=== PATIENT | male | born 1960 | race Caucasian/White ===

== ENCOUNTER 2018-11-05 17:30 | Emergency (ER) | payer BC ==
--- NOTE | 2018-11-05 18:34 | EDM.PDOC ---
ED HPI GENERAL MEDICAL PROBLEM - General Chief Complaint: Skin Complaint Stated Complaint: RASH Time Seen by Provider: 11/05/18 17:42 Source of Information: Reports: Patient History Limitations: Reports: No Limitations - History of Present Illness INITIAL COMMENTS - FREE TEXT/NARRATIVE: HISTORY AND PHYSICAL: History of present illness: Patient is a 58-year-old male presents to the ED today with concern of a generalized rash x 2 months. Patient states he initially had a rash about 2 months ago on his side and was treated for shingles. Patient states after the treatment the rash had gone away but has come back over the past month slowly. Patient states he took the medication accordingly when he was diagnosed with shingles. Patient states he returned he went back to the doctor and was given a steroid and states that this did not take care of his rash completely and it is slowly coming again. Patient states the rash is itchy and is all over his body. Patient states he took one dose of Benadryl today which she has noticed has helped the rash become less itchy. Patient has a history of coronary artery disease but denies any other health history. Patient denies swelling in his throat or difficulties breathing. Patient denies having these symptoms prior. Patient denies any other symptoms or concerns at this time. Patient denies fever, chills, chest pain, shortness of breath, or cough. Denies headache, neck stiff ness, change in vision, syncope, or near syncope. Denies nausea, vomiting, abdominal pain, diarrhea, constipation, or dysuria. Has not noted any blood in urine or stool. Patient has been eating and drinking appropriately. Review of systems: As per history of present illness and below otherwise all systems reviewed and negative. Past medical history: As per history of present illness and as reviewed below otherwise noncontributory. Surgical history: As per history of present illness and as reviewed below otherwise noncontributory. Social history: See social history for further information Family history: As per history of present illness and as reviewed below otherwise noncontributory. Physical exam: General: Patient is alert, oriented, and in no acute distress. Patient sitting comfortably on exam table. HEENT: Atraumatic, normocephalic, pupils equal and reactive bilaterally, negative for conjunctival pallor or scleral icterus, mucous membranes moist, TMs normal bilaterally, throat clear, neck supple, nontender, trachea midline. No drooling or trismus noted. No meningeal signs. No hot potato voice noted. Lungs: Clear to auscultation, breath sounds equal bilaterally, chest nontender. No stridor, wheezing, or use of accessory / intercostal retractions. Heart: S1S2, regular rate and rhythm without overt murmur Abdomen: Soft, nondistended, nontender. Negative for masses or hepatosplenomegaly. Negative for costovertebral tenderness. Pelvis: Stable nontender. Genitourinary: Deferred. Rectal: Deferred. Skin: Patient has a generalized rash involving small circular patches of erythema in various sizes over entire body including armpits and groin area. No crusting or pustules. Not warm to touch. Negative petechiae or purpura. Extremities: Atraumatic, negative for cords or calf pain. Neurovascular unremarkable. Neuro: Awake, alert, oriented. Cranial nerves II through XII unremarkable. Cerebellum unremarkable. Motor and sensory unremarkable throughout. Exam nonfocal. Notes: Discussed the importance for follow-up with primary care provider or interlocker maintainer. Voices understanding and is agreeable to plan of care. Denies any further questions or concerns at this time. Diagnostics: None Therapeutics: None Prescription: Medrol dose pack Impression: Dermatitis, unspecified Plan: 1. Take medication as prescribed. You can alternate ibuprofen and Tylenol as checked her for pain and discomfort. 2. Use [id number] Benadryl as directed and as discussed. Return to the ED as needed and as discussed. 3. Follow up with primary care provider or interlocker maintainer as discussed. Definitive disposition and diagnosis as appropriate pending reevaluation and review of above. - Related Data Allergies Allergy/AdvReac Type Severity Reaction Status Date / Time bees Allergy Hives Uncoded 11/05/18 17:44 Home Meds: Home Meds . [No Known Home Meds] 11/05/18 [History] Past Medical History - Past Health History Medical/Surgical History: Denies Medical/Surgical History Cardiovascular History: Reports: NC - Infectious Disease History Infectious Disease History: Reports: None - Past Surgical History HEENT Surgical History: Reports: Tonsillectomy Cardiovascular Surgical History: Reports: Coronary Artery Stent Other Cardiovascular Surgeries/Procedures: x3 Social & Family History - Family History Family Medical History: Noncontributory - Tobacco Use Smoking Status *Q: Never Smoker ED ROS GENERAL - Review of Systems Review Of Systems: ROS reveals no pertinent complaints other than HPI. ED EXAM, SKIN/RASH Exam: See Below (See dictation) Course - Vital Signs Last Recorded V/S: Last Vital Signs Temp 36.3 C 11/05/18 17:44 Pulse 96 11/05/18 17:44 Resp 16 11/05/18 17:44 BP 151/95 H 11/05/18 17:44 Pulse Ox 96 11/05/18 17:44 Departure - Departure Time of Disposition: 18:33 Disposition: Home, Self-Care 01 Clinical Impression: Dermatitis - Discharge Information Instructions: Atopic Dermatitis Referrals: PCP,None [Primary Care Provider] - Forms: ED Department Discharge Additional Instructions: The following information is given to patients seen in the emergency department who are being discharged to home. This information is to outline your options for follow-up care. We provide all patients seen in our emergency department with a follow-up referral. The need for follow-up, as well as the timing and circumstances, are variable depending upon the specifics of your emergency department visit. If you don't have a primary care physician on staff, we will provide you with a referral. We always advise you to contact your personal physician following an emergency department visit to inform them of the circumstance of the visit and for follow-up with them and/or the need for any referrals to a consulting specialist. The emergency department will also refer you to a specialist when appropriate. This referral assures that you have the opportunity for follow-up care with a specialist. All of these measure are taken in an effort to provide you with optimal care, which includes your follow-up. Under all circumstances we always encourage you to contact your private physician who remains a resource for coordinating your care. When calling for follow-up care, please make the office aware that this follow-up is from your recent emergency room visit. If for any reason you are refused follow-up, please contact the [facility] Emergency Department at and asked to speak to the emergency department charge nurse. [facility] [address] [place] [id number] [id number] 1. Take medication as prescribed. You can alternate ibuprofen and Tylenol as checked her for pain and discomfort. 2. Use [id number] Benadryl as directed and as discussed. Return to the ED as needed and as discussed. 3. Follow up with primary care provider as discussed.
== END 2018-11-05 18:56 | disposition home or self-care (01) ==
LOC: MW.ED 17:30
DX: L30.9 Dermatitis, unspecified (principal); I25.2 Old myocardial infarction; Z91.030 Bee allergy status; Z98.890 Other specified postprocedural states
CPT/HCPCS: 99282

== ENCOUNTER 2018-11-06 12:43 | Observation (INO) | payer BC ==
[2018-11-06] MEDS ORDERED: Aspirin 81 MG Tab.Chew PO ONE (12:48)
[2018-11-06] MEDS ORDERED: Sodium Chloride 0.9% 1,000 ML IV ONE (12:48)
--- NOTE | 2018-11-06 13:20 | EDM.PDOC ---
ED HPI GENERAL MEDICAL PROBLEM - General Chief Complaint: Cardiovascular Problem Stated Complaint: DIZZY Time Seen by Provider: 11/06/18 12:45 Source of Information: Reports: Patient History Limitations: Reports: No Limitations - History of Present Illness INITIAL COMMENTS - FREE TEXT/NARRATIVE: HISTORY AND PHYSICAL: History of present illness: Patient is a 58-year-old male presents to the ED today with concern of acute onset dizziness. Patient states he describes it as if the room is spinning. Patient states he does have a slight chest discomfort but is not described as a pain. Patient was seen in the ED yesterday and I personally did evaluate him for concern of a diffuse rash. Patient was given yesterday a Medrol Dosepak for dermatitis. Patient states he's been taking accordingly and has noticed improvement of his rash as well as improvement of itching. Patient states he was just sitting at home when suddenly he felt dizzy as if the room was spinning. Patient denies ever having these symptoms before. Patient states he does have a history of coronary artery disease status post 2 stent placements. He states this occurred over 6 years ago. Patient denies fever, chills, chest pain, shortness of breath, or cough. Denies headache, neck stiff ness, change in vision, syncope, or near syncope. Denies nausea, vomiting, abdominal pain, diarrhea, constipation, or dysuria. Has not noted any blood in urine or stool. Patient has been eating and drinking appropriately. Review of systems: As per history of present illness and below otherwise all systems reviewed and negative. Past medical history: As per history of present illness and as reviewed below otherwise noncontributory. Surgical history: As per history of present illness and as reviewed below otherwise noncontributory. Social history: See social history for further information Family history: As per history of present illness and as reviewed below otherwise noncontributory. Physical exam: General: Patient is alert, oriented, and in no acute distress. Patient sitting comfortably on exam table. HEENT: Atraumatic, normocephalic, pupils equal and reactive bilaterally, negative for conjunctival pallor or scleral icterus, mucous membranes moist, TMs normal bilaterally, throat clear, neck supple, nontender, trachea midline. No drooling or trismus noted. No meningeal signs. No hot potato voice noted. Lungs: Clear to auscultation, breath sounds equal bilaterally, chest nontender. Heart: S1S2, regular rate and rhythm without overt murmur Abdomen: Soft, nondistended, nontender. Negative for masses or hepatosplenomegaly. Negative for costovertebral tenderness. Pelvis: Stable nontender. Genitourinary: Deferred. Rectal: Deferred. Skin: The area of erythematous small circular patches in various sizes are now only localized to the groin area and some on patient's left flank. Extremities: Atraumatic, negative for cords or calf pain. Neurovascular unremarkable. Neuro: Awake, alert, oriented. Cranial nerves II through XII unremarkable. Cerebellum unremarkable. Motor and sensory unremarkable throughout. Exam nonfocal. Notes: On evaluation, yesterday the rash is generalized and not in any localized area. The rash is much improved today and now is only localized to the groin area and some on the left flank. Dr. Garcia consult on patient and will admit to observation. Voices understanding and is agreeable to plan of care. Denies any further questions or concerns at this time. Diagnostics: CBC, CMP, UA, EKG, troponin, orthostatic vital, chest x-ray, head CT, pt/INR Therapeutics: ASA, NS Impression: Chest pain r/o ACS Dizziness Dermatitis, improving Plan: 1. Admit to observation to Dr. Garcia. Definitive disposition and diagnosis as appropriate pending reevaluation and review of above. - Related Data Allergies Allergy/AdvReac Type Severity Reaction Status Date / Time bees Allergy Mild Hives Uncoded 11/06/18 12:47 Home Meds: Home Meds prednisoLONE [Millipred DP] 5 mg PO ASDIRECTED 11/06/18 [History] Past Medical History - Past Health History Medical/Surgical History: Denies Medical/Surgical History Cardiovascular History: Reports: CT - Infectious Disease History Infectious Disease History: Reports: Chicken Pox, Measles, Mumps - Past Surgical History HEENT Surgical History: Reports: Tonsillectomy Cardiovascular Surgical History: Reports: Coronary Artery Stent Other Cardiovascular Surgeries/Procedures: x3 Social & Family History - Family History Family Medical History: Noncontributory - Tobacco Use Smoking Status *Q: Former Smoker Years of Tobacco use: 40 Packs/Tins Daily: 1 Used Tobacco, but Quit: Yes Month/Year Tobacco Last Used: 8 year - Caffeine Use Caffeine Use: Reports: None - Recreational Drug Use Recreational Drug Use: No ED ROS GENERAL - Review of Systems Review Of Systems: ROS reveals no pertinent complaints other than HPI. ED EXAM, GENERAL - Physical Exam Exam: See Below (see dictation) Course - Vital Signs Last Recorded V/S: Last Vital Signs Temp 36.1 C 11/06/18 12:48 Pulse 89 11/06/18 13:55 Resp 18 11/06/18 13:55 BP 120/79 11/06/18 13:55 Pulse Ox 98 11/06/18 13:55 Orthostatic Blood Pressure [ 130/82 Standing] Orthostatic Blood Pressure [ 137/80 Sitting] Orthostatic Blood Pressure [ 128/84 Supine] - Orders/Labs/Meds Orders: Active Orders 24 hr Category Date Time Status Patient Status [ADT] Stat ADT 11/06/18 14:14 Ordered Cardiac Monitoring [RC] . DIRECTED Care 11/06/18 12:48 Active EKG Documentation Completion [RC] STAT Care 11/06/18 12:48 Active Orthostatic Vital Signs [RC] ASDIRECTED Care 11/06/18 13:09 Active Labs: Laboratory Tests 11/06/18 11/06/18 11/06/18 Range/Units 12:57 12:57 12:57 WBC 13.82 H (4.0-11.0) K/uL RBC 4.69 (4.50-5.90) M/uL Hgb 14.7 (13.0-17.0) g/dL Hct 42.5 (38.0-50.0) % MCV 90.6 (80.0-98.0) fL MCH 31.3 (27.0-32.0) pg MCHC 34.6 (31.0-37.0) g/dL RDW Std Deviation 43.0 (28.0-62.0) fl RDW Coeff of Ana Laura 13 (11.0-15.0) % Plt Count 229 (150-400) K/uL MPV 8.80 (7.40-12.00) fL Neut % (Auto) 89.2 H (48.0-80.0) % Lymph % (Auto) 5.3 L (16.0-40.0) % [place] % (Auto) 5.4 (0.0-15.0) % Eos % (Auto) 0.0 (0.0-7.0) % Baso % (Auto) 0.1 (0.0-1.5) % Neut # (Auto) 12.3 H (1.4-5.7) K/uL Lymph # (Auto) 0.7 (0.6-2.4) K/uL [place] # (Auto) 0.7 (0.0-0.8) K/uL Eos # (Auto) 0.0 (0.0-0.7) K/uL Baso # (Auto) 0.0 (0.0-0.1) K/uL Nucleated RBC % 0.0 /100WBC Nucleated RBCs # 0 K/uL INR 1.03 Sodium 140 (136-148) mmol/L Potassium 3.6 (3.5-5.1) mmol/L Chloride 105 (98-107) mmol/L Carbon Dioxide 23.5 (21.0-32.0) mmol/L BUN 9 (7.0-18.0) mg/dL Creatinine 1.1 (0.8-1.3) mg/dL Est Cr Clr Drug Dosing 69.95 mL/min Estimated GFR (MDRD) > 60.0 ml/min Glucose 146 H (74-106) mg/dL Calcium 9.6 (8.5-10.1) mg/dL Total Bilirubin 0.6 (0.2-1.0) mg/dL AST 14 L (15-37) IU/L ALT 27 (14-63) IU/L Alkaline Phosphatase 76 (46-116) U/L Troponin I < 0.050 (0.000-0.056) ng/mL Total Protein 6.2 L (6.4-8.2) g/dL Albumin 3.0 L (3.4-5.0) g/dL Globulin 3.2 (2.6-4.0) g/dL Albumin/Globulin Ratio 0.9 (0.9-1.6) Urine Color Urine Appearance Urine pH (5.0-8.0) Ur Specific [place] (1.001-1.035) Urine Protein (NEGATIVE) mg/dL Urine Glucose (UA) (NEGATIVE) mg/dL Urine Ketones (NEGATIVE) mg/dL Urine Occult Blood (NEGATIVE) Urine Nitrite (NEGATIVE) Urine Bilirubin (NEGATIVE) Urine Urobilinogen (<2.0) EU/dL Ur Leukocyte Esterase (NEGATIVE) 11/06/18 Range/Units 13:00 WBC (4.0-11.0) K/uL RBC (4.50-5.90) M/uL Hgb (13.0-17.0) g/dL Hct (38.0-50.0) % MCV (80.0-98.0) fL MCH (27.0-32.0) pg MCHC (31.0-37.0) g/dL RDW Std Deviation (28.0-62.0) fl RDW Coeff of Ana Laura (11.0-15.0) % Plt Count (150-400) K/uL MPV (7.40-12.00) fL Neut % (Auto) (48.0-80.0) % Lymph % (Auto) (16.0-40.0) % [place] % (Auto) (0.0-15.0) % Eos % (Auto) (0.0-7.0) % Baso % (Auto) (0.0-1.5) % Neut # (Auto) (1.4-5.7) K/uL Lymph # (Auto) (0.6-2.4) K/uL [place] # (Auto) (0.0-0.8) K/uL Eos # (Auto) (0.0-0.7) K/uL Baso # (Auto) (0.0-0.1) K/uL Nucleated RBC % /100WBC Nucleated RBCs # K/uL INR Sodium (136-148) mmol/L Potassium (3.5-5.1) mmol/L Chloride (98-107) mmol/L Carbon Dioxide (21.0-32.0) mmol/L BUN (7.0-18.0) mg/dL Creatinine (0.8-1.3) mg/dL Est Cr Clr Drug Dosing mL/min Estimated GFR (MDRD) ml/min Glucose (74-106) mg/dL Calcium (8.5-10.1) mg/dL Total Bilirubin (0.2-1.0) mg/dL AST (15-37) IU/L ALT (14-63) IU/L Alkaline Phosphatase (46-116) U/L Troponin I (0.000-0.056) ng/mL Total Protein (6.4-8.2) g/dL Albumin (3.4-5.0) g/dL Globulin (2.6-4.0) g/dL Albumin/Globulin Ratio (0.9-1.6) Urine Color YELLOW Urine Appearance CLEAR Urine pH 6.0 (5.0-8.0) Ur Specific [place] 1.025 (1.001-1.035) Urine Protein NEGATIVE (NEGATIVE) mg/dL Urine Glucose (UA) 250 H (NEGATIVE) mg/dL Urine Ketones 15 H (NEGATIVE) mg/dL Urine Occult Blood NEGATIVE (NEGATIVE) Urine Nitrite NEGATIVE (NEGATIVE) Urine Bilirubin NEGATIVE (NEGATIVE) Urine Urobilinogen 0.2 (<2.0) EU/dL Ur Leukocyte Esterase NEGATIVE (NEGATIVE) Meds: Medications Discontinued Medications Generic Name Dose Route Start Last Admin Trade Name Freq PRN Reason Stop Dose Admin Aspirin 324 mg 11/06/18 12:48 11/06/18 13:05 Aspirin PO 11/06/18 12:49 324 mg ONETIME ONE Administration Sodium Chloride 1,000 mls @ 999 mls/hr 11/06/18 12:48 11/06/18 13:05 Normal Saline IV 11/06/18 13:48 999 mls/hr BOLUS ONE Administration Departure - Departure Time of Disposition: 14:10 Disposition: Refer to Observation Clinical Impression: Dizziness, Dermatitis Chest pain Qualifiers: Chest pain type: unspecified Qualified Code(s): R07.9 - Chest pain, unspecified Referrals: PCP,Unknown [Primary Care Provider] - - My Orders Last 24 Hours: My Active Orders 11/06/18 12:48 Cardiac Monitoring [RC] . DIRECTED EKG Documentation Completion [RC] STAT 11/06/18 13:09 Orthostatic Vital Signs [RC] ASDIRECTED 11/06/18 14:14 Patient Status [ADT] Stat - Assessment/Plan Last 24 Hours: My Active Orders 11/06/18 12:48 Cardiac Monitoring [RC] . DIRECTED EKG Documentation Completion [RC] STAT 11/06/18 13:09 Orthostatic Vital Signs [RC] ASDIRECTED 11/06/18 14:14 Patient Status [ADT] Stat
--- NOTE | 2018-11-06 13:23 | CR ---
Indication: Dizziness. Technique: Single AP portable view of the chest was obtained. Comparison: None Findings: The heart is normal in size. The lungs are clear. No infiltrate, pleural effusion, or pneumothorax is identified. Impression: No acute cardiopulmonary process. Dictated by Vonda Cedeño MD @ Nov 06 2018 1:22PM Signed by Dr. Vonda Cedeño @ Nov 06 2018 1:23PM
[2018-11-06 13:26] LABS: CHLORIDE,CL 105 mmol/L (98-107); SODIUM,NA 140 mmol/L (136-148)
--- NOTE | 2018-11-06 14:01 | CT ---
INDICATION: Dizziness TECHNIQUE: CT Head without contrast. COMPARISON: None FINDINGS: Ventricles and sulci are normal in size and configuration. No extra axial collection. No acute intracranial hemorrhage. No mass effect or edema. No CT evidence of acute, large territorial infarction. Vascular calcifications at the skull base. Visualized paranasal sinuses and mastoid air cells are well aerated. Calvarium is unremarkable. IMPRESSION: No acute intracranial hemorrhage or mass effect. Dictated by Rosario Childs MD @ 11/06/2018 1:58:54 PM Please note that all CT scans at this facility use dose modulation, iterative reconstruction, and/or weight-based dosing when appropriate to reduce radiation dose to as low as reasonably achievable. Dictated by: Rosario Childs MD @ 11/06/2018 13:59:01 (Electronically Signed)
[2018-11-06] MEDS ORDERED: Docusate Sodium 100 MG Cap PO PRN (14:54)
[2018-11-06] MEDS ORDERED: oxyCODONE 5 MG Tab PO PRN (14:54)
[2018-11-06] MEDS ORDERED: Acetaminophen 325 MG Tab PO PRN (14:54)
[2018-11-06] MEDS ORDERED: Sodium Chloride 0.9% 1,000 ML IV SCH (15:00)
--- NOTE | 2018-11-06 15:15 | PCM.HP.2 ---
H&P History of Present Illness - General Date of Service: 11/06/18 Admit Problem/Dx: Admission Diagnosis/Problem Admission Diagnosis/Problem Chest pain Source of Information: Patient History Limitations: Reports: No Limitations - History of Present Illness Initial Comments - Free Text/Narative: The patient is a 58-year-old gentleman who had presented to the emergency department out of concern with acute onset dizziness. The patient had described it as room spinning. He also had been complaining of chest discomfort but not described as pain. Interestingly, the patient was evaluated in the emergency department yesterday secondary to a generalized body rash and had been given steroids. The patient says that the dizziness started this morning. He has denied any fever or chills. No pain now. The patient has described the rash as itchy located in his thighs, back, arms and torso. The patient said that the rash had improved with the use of Medrol Dosepak given yesterday. No other complaints at the present time Onset of Symptoms: Reports: Today Duration of Symptoms: Reports: Hour(s): Location: Reports: Chest Quality: Reports: Throbbing Severity: Mild Improves with: Reports: None Worsens with: Reports: None Context: Denies: Sick Contact Associated Symptoms: Reports: No Other Symptoms - Related Data Allergies/Adverse Reactions: Allergies Allergy/AdvReac Type Severity Reaction Status Date / Time bees Allergy Severe Facial Uncoded 11/06/18 15:15 Swelling Home Medications: Home Meds Aspirin [Adult Low Dose Aspirin EC] 81 mg PO DAILY 11/06/18 [History] Fish Oil/DHA/EPA [Fish Oil 1,200 MG] 1 each PO BID 11/06/18 [History] Past Medical History - Past Health History Medical/Surgical History: Denies Medical/Surgical History HEENT History: Reports: None Cardiovascular History: Reports: [place] Respiratory History: Reports: None Gastrointestinal History: Reports: None Genitourinary History: Reports: None Musculoskeletal History: Reports: None Neurological History: Reports: None Psychiatric History: Reports: None Endocrine/Metabolic History: Reports: None Hematologic History: Reports: None Immunologic History: Reports: None Oncologic (Cancer) History: Reports: None Dermatologic History: Reports: Seborrheic Dermatitis - Infectious Disease History Infectious Disease History: Reports: Chicken Pox, Measles, Mumps - Past Surgical History HEENT Surgical History: Reports: Tonsillectomy Cardiovascular Surgical History: Reports: Coronary Artery Stent Other Cardiovascular Surgeries/Procedures: x3 GI Surgical History: Reports: Hernia, Abdominal Musculoskeletal Surgical History: Reports: Other (See Below) Other Musculoskeletal Surgeries/Procedures:: Ankle surgery Social & Family History - Family History Family Medical History: Noncontributory Cardiac: Reports: CAD - Tobacco Use Smoking Status *Q: Former Smoker Years of Tobacco use: 40 Packs/Tins Daily: 1 Used Tobacco, but Quit: Yes Month/Year Tobacco Last Used: 2009 Second Hand Smoke Exposure: No - Caffeine Use Caffeine Use: Reports: Coffee Caffeine Use Comment: Daily - Alcohol Use Alcohol Use History: No - Recreational Drug Use Recreational Drug Use: No - Living Situation & Occupation Living situation: Reports: Single Occupation: Employed H&P Review of Systems - Review of Systems: Review Of Systems: See Below General: Reports: No Symptoms HEENT: Reports: Vertigo Pulmonary: Reports: No Symptoms Cardiovascular: Reports: Chest Pain Gastrointestinal: Reports: No Symptoms Genitourinary: Reports: No Symptoms Musculoskeletal: Reports: No Symptoms Skin: Reports: Pruritis, Rash Psychiatric: Reports: No Symptoms Neurological: Reports: No Symptoms Hematologic/Lymphatic: Reports: No Symptoms Immunologic: Reports: No Symptoms Exam - Exam Exam: See Below - Vital Signs Vital Signs: Last Vital Signs Temp 36.1 C 11/06/18 12:48 Pulse 89 11/06/18 14:49 Resp 19 11/06/18 14:49 BP 131/81 11/06/18 14:49 Pulse Ox 97 11/06/18 14:49 Orthostatic Blood Pressure [ 130/82 Standing] Orthostatic Blood Pressure [ 137/80 Sitting] Orthostatic Blood Pressure [ 128/84 Supine] Weight: 95.164 kg - Exam Quality Assessment: No: Supplemental Oxygen General: Alert, Oriented, Cooperative HEENT: Conjunctiva Clear, EACs Clear, EOMI, Mucosa Moist & [place], Pupils Equal, PERRLA Neck: Supple, Trachea Midline Lungs: Clear to Auscultation, Normal Respiratory Effort Cardiovascular: Regular Rate, Regular Rhythm GI/Abdominal Exam: Normal Bowel Sounds, Soft, Non-Tender, No Distention Back Exam: Normal Inspection, Full Range of Motion Extremities: Normal Inspection, No Pedal Edema Skin: Warm, Dry, Intact, Other (Macular papular rash located predominantly on the patient's buttocks, posterior thighs, torso) Neurological: Cranial Nerves Intact Neuro Extensive - Mental Status: Alert, Oriented x3 Psychiatric: Alert, Normal Affect, Normal Mood - Patient Data Lab Results Last 24 hrs: Laboratory Results - last 24 hr 11/06/18 11/06/18 11/06/18 Range/Units 12:57 12:57 12:57 WBC 13.82 H (4.0-11.0) K/uL RBC 4.69 (4.50-5.90) M/uL Hgb 14.7 (13.0-17.0) g/dL Hct 42.5 (38.0-50.0) % MCV 90.6 (80.0-98.0) fL MCH 31.3 (27.0-32.0) pg MCHC 34.6 (31.0-37.0) g/dL RDW Std Deviation 43.0 (28.0-62.0) fl RDW Coeff of Ana Laura 13 (11.0-15.0) % Plt Count 229 (150-400) K/uL MPV 8.80 (7.40-12.00) fL Neut % (Auto) 89.2 H (48.0-80.0) % Lymph % (Auto) 5.3 L (16.0-40.0) % [place] % (Auto) 5.4 (0.0-15.0) % Eos % (Auto) 0.0 (0.0-7.0) % Baso % (Auto) 0.1 (0.0-1.5) % Neut # (Auto) 12.3 H (1.4-5.7) K/uL Lymph # (Auto) 0.7 (0.6-2.4) K/uL [place] # (Auto) 0.7 (0.0-0.8) K/uL Eos # (Auto) 0.0 (0.0-0.7) K/uL Baso # (Auto) 0.0 (0.0-0.1) K/uL Nucleated RBC % 0.0 /100WBC Nucleated RBCs # 0 K/uL INR 1.03 Sodium 140 (136-148) mmol/L Potassium 3.6 (3.5-5.1) mmol/L Chloride 105 (98-107) mmol/L Carbon Dioxide 23.5 (21.0-32.0) mmol/L BUN 9 (7.0-18.0) mg/dL Creatinine 1.1 (0.8-1.3) mg/dL Est Cr Clr Drug Dosing 69.95 mL/min Estimated GFR (MDRD) > 60.0 ml/min Glucose 146 H (74-106) mg/dL Calcium 9.6 (8.5-10.1) mg/dL Total Bilirubin 0.6 (0.2-1.0) mg/dL AST 14 L (15-37) IU/L ALT 27 (14-63) IU/L Alkaline Phosphatase 76 (46-116) U/L Troponin I < 0.050 (0.000-0.056) ng/mL Total Protein 6.2 L (6.4-8.2) g/dL Albumin 3.0 L (3.4-5.0) g/dL Globulin 3.2 (2.6-4.0) g/dL Albumin/Globulin Ratio 0.9 (0.9-1.6) Urine Color Urine Appearance Urine pH (5.0-8.0) Ur Specific [place] (1.001-1.035) Urine Protein (NEGATIVE) mg/dL Urine Glucose (UA) (NEGATIVE) mg/dL Urine Ketones (NEGATIVE) mg/dL Urine Occult Blood (NEGATIVE) Urine Nitrite (NEGATIVE) Urine Bilirubin (NEGATIVE) Urine Urobilinogen (<2.0) EU/dL Ur Leukocyte Esterase (NEGATIVE) 11/06/18 Range/Units 13:00 WBC (4.0-11.0) K/uL RBC (4.50-5.90) M/uL Hgb (13.0-17.0) g/dL Hct (38.0-50.0) % MCV (80.0-98.0) fL MCH (27.0-32.0) pg MCHC (31.0-37.0) g/dL RDW Std Deviation (28.0-62.0) fl RDW Coeff of [place] (11.0-15.0) % Plt Count (150-400) K/uL MPV (7.40-12.00) fL Neut % (Auto) (48.0-80.0) % Lymph % (Auto) (16.0-40.0) % [place] % (Auto) (0.0-15.0) % Eos % (Auto) (0.0-7.0) % Baso % (Auto) (0.0-1.5) % Neut # (Auto) (1.4-5.7) K/uL Lymph # (Auto) (0.6-2.4) K/uL [place] # (Auto) (0.0-0.8) K/uL Eos # (Auto) (0.0-0.7) K/uL Baso # (Auto) (0.0-0.1) K/uL Nucleated RBC % /100WBC Nucleated RBCs # K/uL INR Sodium (136-148) mmol/L Potassium (3.5-5.1) mmol/L Chloride (98-107) mmol/L Carbon Dioxide (21.0-32.0) mmol/L BUN (7.0-18.0) mg/dL Creatinine (0.8-1.3) mg/dL Est Cr Clr Drug Dosing mL/min Estimated GFR (MDRD) ml/min Glucose (74-106) mg/dL Calcium (8.5-10.1) mg/dL Total Bilirubin (0.2-1.0) mg/dL AST (15-37) IU/L ALT (14-63) IU/L Alkaline Phosphatase (46-116) U/L Troponin I (0.000-0.056) ng/mL Total Protein (6.4-8.2) g/dL Albumin (3.4-5.0) g/dL Globulin (2.6-4.0) g/dL Albumin/Globulin Ratio (0.9-1.6) Urine Color YELLOW Urine Appearance CLEAR Urine pH 6.0 (5.0-8.0) Ur Specific [place] 1.025 (1.001-1.035) Urine Protein NEGATIVE (NEGATIVE) mg/dL Urine Glucose (UA) 250 H (NEGATIVE) mg/dL Urine Ketones 15 H (NEGATIVE) mg/dL Urine Occult Blood NEGATIVE (NEGATIVE) Urine Nitrite NEGATIVE (NEGATIVE) Urine Bilirubin NEGATIVE (NEGATIVE) Urine Urobilinogen 0.2 (<2.0) EU/dL Ur Leukocyte Esterase NEGATIVE (NEGATIVE) Result Diagrams: 11/06/18 12:57 11/06/18 12:57 EKG INTERPRETATION EKG Date: 11/06/18 Time: 12:51 Rhythm: NSR Rate (Beats/Min): 93 [place]: Normal P-Wave: Present QRS: Normal ST-T: Normal QT: Normal Comparison: NA - No Prior EKG EKG Interpretation Comments: Normal - Problem List (1) Dizziness SNOMED Code(s): 060802504, 219416603 ICD Code: R42 - DIZZINESS AND GIDDINESS Status: Acute Priority: High Current Visit: Yes (2) Chest pain SNOMED Code(s): 26275749 ICD Code: R07.9 - CHEST PAIN, UNSPECIFIED Status: Acute Priority: High Current Visit: Yes Qualifiers: Chest pain type: intercostal pain Qualified Code(s): R07.82 - Intercostal pain (3) Coronary artery disease SNOMED Code(s): 05774557 ICD Code: I25.10 - ATHSCL HEART DISEASE OF [place] CORONARY ARTERY W/O ANG PCTRS Status: Chronic Priority: High Current Visit: Yes Qualifiers: Coronary Disease-Associated Artery/Lesion type: [place] artery [place] vs. transplanted heart: [place] heart Associated angina: without angina Qualified Code(s): I25.10 - Atherosclerotic heart disease of [place] coronary artery without angina pectoris (4) Dermatitis SNOMED Code(s): 396545630 ICD Code: L30.9 - DERMATITIS, UNSPECIFIED Status: Chronic Priority: Medium Current Visit: Yes (5) History of coronary artery stent placement SNOMED Code(s): 814897304, 589765354 ICD Code: Z95.5 - PRESENCE OF CORONARY ANGIOPLASTY IMPLANT AND GRAFT Status : Chronic Priority: High Current Visit: Yes Problem List Initiated/Reviewed/Updated: Yes Orders Last 24hrs: Active Orders 24 hr Category Date Time Status Patient Status [ADT] Stat ADT 11/06/18 14:14 Active Cardiac Monitoring [RC] . DIRECTED Care 11/06/18 12:48 Active Cardiac Monitoring [RC] CONTINUOUS Care 11/06/18 14:53 Active EKG Documentation Completion [RC] AM Care 11/07/18 08:00 Active Oxygen Therapy [RC] PRN Care 11/06/18 14:54 Active Up ad Miri [RC] ASDIRECTED Care 11/06/18 14:52 Active VTE/DVT Education [RC] PER UNIT ROUTINE Care 11/06/18 14:52 Active VTE/DVT Education [RC] PER UNIT ROUTINE Care 08/25/19 14:54 Active Vital Signs [RC] Q4H Care 11/06/18 14:52 Active Vital Signs [RC] Q4H Care 11/06/18 14:54 Active Heart Healthy Diet [DIET] Diet 11/06/18 Dinner Active BASIC METABOLIC PANEL,BMP [CHEM] AM Lab 11/07/18 05:11 Ordered CBC WITH AUTO DIFF [HEME] AM Lab 11/07/18 05:11 Ordered TROPONIN I [CHEM] Q6H Lab 11/06/18 18:00 Ordered TROPONIN I [CHEM] Q6H Lab 11/07/18 00:00 Ordered Acetaminophen [Tylenol] Med 11/06/18 14:54 Ordered 650 mg PO Q4H PRN Docusate Sodium [Colace] Med 11/06/18 14:54 Ordered 100 mg PO BID PRN Heparin Sodium Med 11/06/18 15:00 Ordered 5,000 units SUBCUT Q8H Sodium Chloride 0.9% [Normal Saline] 1,000 ml Med 11/06/18 15:00 Ordered IV ASDIRECTED oxyCODONE Med 11/06/18 14:54 Ordered 5 mg PO Q4H PRN Resuscitation Status Routine Resus Stat 11/06/18 14:52 Ordered Medication Orders Acetaminophen (Tylenol) 650 mg PO Q4H PRN PRN Reason: Pain (Mild 1-3)/fever Docusate Sodium (Colace) 100 mg PO BID PRN PRN Reason: Constipation Heparin Sodium (Porcine) (Heparin Sodium) 5,000 units SUBCUT Q8H JUAN CARLOS Sodium Chloride (Normal Saline) 1,000 mls @ 75 mls/hr IV ASDIRECTED JUAN CARLOS Oxycodone HCl (Oxycodone) 5 mg PO Q4H PRN PRN Reason: Pain (moderate 4-6) Assessment/Plan Comment:: The patient is a 58-year-old gentleman who had been admitted to observation secondary to express dizziness and chest discomfort. Interestingly, the patient' s overriding concern is his rash which appears to be fungal in nature and is likely tenia. The patient will have Diflucan 100 mg by mouth daily. The patient' s initial troponin was undetectable. The patient will have 2 more troponins every 6 hours to help exclude ACS. The patient will also be kept on telemetry. He'll have cardiac diet as tolerated. The patient will also be anticoagulated with the use of Lovenox. The patient has been encouraged to ambulate. The patient should be appropriate for discharge in 1-2 days. - Mortality Measure Prognosis:: Good
[2018-11-06] MEDS ORDERED: diphenhydrAMINE 25 MG Cap PO PRN (15:35)
[2018-11-06] MEDS: Heparin Sodium 5,000 Units/ML Vial SUBCUT SCH ×2 (15:41→22:45)
[2018-11-06] MEDS: Fluconazole 100 MG Tab PO SCH (16:08)
[2018-11-06] MEDS ORDERED: hydrOXYzine HCl 10 MG/5 ML Syrup ML (118 ML Bottle) PO PRN (17:19)
[2018-11-06] MEDS ORDERED: Temazepam 15 MG Cap PO PRN (17:20)
[2018-11-06] MEDS: hydrOXYzine HCl 25 MG Tab PO PRN (17:49)
[2018-11-07 06:51] LABS: CHLORIDE,CL 109 mmol/L (98-107); SODIUM,NA 141 mmol/L (136-148)
[2018-11-07] MEDS: Heparin Sodium 5,000 Units/ML Vial SUBCUT SCH ×3 (08:00→23:38)
[2018-11-07 08:29] LABS: HEMOGLOBIN A1C 5.6 % (4.5-6.2)
[2018-11-07] MEDS: hydrOXYzine HCl 25 MG Tab PO PRN (09:58)
[2018-11-07] MEDS: Fluconazole 100 MG Tab PO SCH (10:00)
--- NOTE | 2018-11-07 11:03 | PCM.PN ---
- General Info Date of Service: 11/07/18 Admission Dx/Problem (Free Text): Admission Diagnosis/Problem Admission Diagnosis/Problem Dizziness, rash Subjective Update: Reports he continues to feel very dizzy when getting up and moving. He denies chest pain currently. No shortness of breath. Reports rash is very itchy and his night was restless because of this. Functional Status: Reports: Pain Controlled, Tolerating Diet, Ambulating (only to bathroom and back), Urinating - Review of Systems General: Reports: Fatigue, Malaise HEENT: Reports: Other (blurred vision). Denies: Headaches, Sore Throat, Visual Changes Pulmonary: Reports: No Symptoms. Denies: Shortness of Breath Cardiovascular: Reports: No Symptoms. Denies: Chest Pain Gastrointestinal: Reports: No Symptoms. Denies: Abdominal Pain, Nausea, Vomiting Genitourinary: Reports: No Symptoms. Denies: Dysuria, Frequency, Burning Musculoskeletal: Reports: No Symptoms Skin: Reports: Pruritis, Rash Neurological: Reports: Dizziness. Denies: Headache Psychiatric: Reports: No Symptoms - Patient Data Vitals - Most Recent: Last Vital Signs Temp 97.6 F 11/07/18 08:00 Pulse 84 11/07/18 08:00 Resp 17 11/07/18 08:00 BP 101/71 11/07/18 08:00 Pulse Ox 97 11/07/18 08:00 Orthostatic Blood Pressure [ 125/67 Standing] Orthostatic Blood Pressure [ 114/81 Sitting] Orthostatic Blood Pressure [ 114/76 Supine] Weight - Most Recent: 94.846 kg I&O - Last 24 Hours: Intake & Output 11/06/18 11/07/18 11/07/18 22:59 06:59 14:59 Intake Total 200 300 180 Output Total 0 Balance 200 300 180 Lab Results Last 24 Hours: Laboratory Results - last 24 hr 11/06/18 11/06/18 11/06/18 Range/Units 12:57 12:57 12:57 WBC 13.82 H (4.0-11.0) K/uL RBC 4.69 (4.50-5.90) M/uL Hgb 14.7 (13.0-17.0) g/dL Hct 42.5 (38.0-50.0) % MCV 90.6 (80.0-98.0) fL MCH 31.3 (27.0-32.0) pg MCHC 34.6 (31.0-37.0) g/dL RDW Std Deviation 43.0 (28.0-62.0) fl RDW Coeff of [place] 13 (11.0-15.0) % Plt Count 229 (150-400) K/uL MPV 8.80 (7.40-12.00) fL Neut % (Auto) 89.2 H (48.0-80.0) % Lymph % (Auto) 5.3 L (16.0-40.0) % [place] % (Auto) 5.4 (0.0-15.0) % Eos % (Auto) 0.0 (0.0-7.0) % Baso % (Auto) 0.1 (0.0-1.5) % Neut # (Auto) 12.3 H (1.4-5.7) K/uL Lymph # (Auto) 0.7 (0.6-2.4) K/uL [place] # (Auto) 0.7 (0.0-0.8) K/uL Eos # (Auto) 0.0 (0.0-0.7) K/uL Baso # (Auto) 0.0 (0.0-0.1) K/uL Nucleated RBC % 0.0 /100WBC Nucleated RBCs # 0 K/uL INR 1.03 Sodium 140 (136-148) mmol/L Potassium 3.6 (3.5-5.1) mmol/L Chloride 105 (98-107) mmol/L Carbon Dioxide 23.5 (21.0-32.0) mmol/L BUN 9 (7.0-18.0) mg/dL Creatinine 1.1 (0.8-1.3) mg/dL Est Cr Clr Drug Dosing 69.95 mL/min Estimated GFR (MDRD) > 60.0 ml/min Glucose 146 H (74-106) mg/dL Hemoglobin A1c (4.5-6.2) % Calcium 9.6 (8.5-10.1) mg/dL Total Bilirubin 0.6 (0.2-1.0) mg/dL AST 14 L (15-37) IU/L ALT 27 (14-63) IU/L Alkaline Phosphatase 76 (46-116) U/L Troponin I < 0.050 (0.000-0.056) ng/mL Total Protein 6.2 L (6.4-8.2) g/dL Albumin 3.0 L (3.4-5.0) g/dL Globulin 3.2 (2.6-4.0) g/dL Albumin/Globulin Ratio 0.9 (0.9-1.6) Triglycerides (0-200) mg/dL Cholesterol (50-200) mg/dL LDL Cholesterol, Calc (60-180) mg/dL VLDL Cholesterol (5-55) mg/dL HDL Cholesterol (40-60) mg/dL Cholesterol/HDL Ratio (3.3-6.0) Urine Color Urine Appearance Urine pH (5.0-8.0) Ur Specific [place] (1.001-1.035) Urine Protein (NEGATIVE) mg/dL Urine Glucose (UA) (NEGATIVE) mg/dL Urine Ketones (NEGATIVE) mg/dL Urine Occult Blood (NEGATIVE) Urine Nitrite (NEGATIVE) Urine Bilirubin (NEGATIVE) Urine Urobilinogen (<2.0) EU/dL Ur Leukocyte Esterase (NEGATIVE) 11/06/18 11/06/18 11/07/18 Range/Units 13:00 17:59 00:14 WBC (4.0-11.0) K/uL RBC (4.50-5.90) M/uL Hgb (13.0-17.0) g/dL Hct (38.0-50.0) % MCV (80.0-98.0) fL MCH (27.0-32.0) pg MCHC (31.0-37.0) g/dL RDW Std Deviation (28.0-62.0) fl RDW Coeff of [place] (11.0-15.0) % Plt Count (150-400) K/uL MPV (7.40-12.00) fL Neut % (Auto) (48.0-80.0) % Lymph % (Auto) (16.0-40.0) % [place] % (Auto) (0.0-15.0) % Eos % (Auto) (0.0-7.0) % Baso % (Auto) (0.0-1.5) % Neut # (Auto) (1.4-5.7) K/uL Lymph # (Auto) (0.6-2.4) K/uL [place] # (Auto) (0.0-0.8) K/uL Eos # (Auto) (0.0-0.7) K/uL Baso # (Auto) (0.0-0.1) K/uL Nucleated RBC % /100WBC Nucleated RBCs # K/uL INR Sodium (136-148) mmol/L Potassium (3.5-5.1) mmol/L Chloride (98-107) mmol/L Carbon Dioxide (21.0-32.0) mmol/L BUN (7.0-18.0) mg/dL Creatinine (0.8-1.3) mg/dL Est Cr Clr Drug Dosing mL/min Estimated GFR (MDRD) ml/min Glucose (74-106) mg/dL Hemoglobin A1c (4.5-6.2) % Calcium (8.5-10.1) mg/dL Total Bilirubin (0.2-1.0) mg/dL AST (15-37) IU/L ALT (14-63) IU/L Alkaline Phosphatase (46-116) U/L Troponin I < 0.050 < 0.050 (0.000-0.056) ng/mL Total Protein (6.4-8.2) g/dL Albumin (3.4-5.0) g/dL Globulin (2.6-4.0) g/dL Albumin/Globulin Ratio (0.9-1.6) Triglycerides (0-200) mg/dL Cholesterol (50-200) mg/dL LDL Cholesterol, Calc (60-180) mg/dL VLDL Cholesterol (5-55) mg/dL HDL Cholesterol (40-60) mg/dL Cholesterol/HDL Ratio (3.3-6.0) Urine Color YELLOW Urine Appearance CLEAR Urine pH 6.0 (5.0-8.0) Ur Specific [place] 1.025 (1.001-1.035) Urine Protein NEGATIVE (NEGATIVE) mg/dL Urine Glucose (UA) 250 H (NEGATIVE) mg/dL Urine Ketones 15 H (NEGATIVE) mg/dL Urine Occult Blood NEGATIVE (NEGATIVE) Urine Nitrite NEGATIVE (NEGATIVE) Urine Bilirubin NEGATIVE (NEGATIVE) Urine Urobilinogen 0.2 (<2.0) EU/dL Ur Leukocyte Esterase NEGATIVE (NEGATIVE) 11/07/18 11/07/18 11/07/18 Range/Units 06:00 06:00 06:00 WBC 12.37 H (4.0-11.0) K/uL RBC 4.88 (4.50-5.90) M/uL Hgb 15.2 (13.0-17.0) g/dL Hct 44.6 (38.0-50.0) % MCV 91.4 (80.0-98.0) fL MCH 31.1 (27.0-32.0) pg MCHC 34.1 (31.0-37.0) g/dL RDW Std Deviation 44.1 (28.0-62.0) fl RDW Coeff of [place] 13 (11.0-15.0) % Plt Count 195 (150-400) K/uL MPV 9.30 (7.40-12.00) fL Neut % (Auto) 76.9 (48.0-80.0) % Lymph % (Auto) 15.1 L (16.0-40.0) % [place] % (Auto) 7.6 (0.0-15.0) % Eos % (Auto) 0.2 (0.0-7.0) % Baso % (Auto) 0.2 (0.0-1.5) % Neut # (Auto) 9.5 H (1.4-5.7) K/uL Lymph # (Auto) 1.9 (0.6-2.4) K/uL [place] # (Auto) 0.9 H (0.0-0.8) K/uL Eos # (Auto) 0.0 (0.0-0.7) K/uL Baso # (Auto) 0.0 (0.0-0.1) K/uL Nucleated RBC % 0.0 /100WBC Nucleated RBCs # 0 K/uL INR Sodium 141 (136-148) mmol/L Potassium 3.9 (3.5-5.1) mmol/L Chloride 109 H (98-107) mmol/L Carbon Dioxide 23.7 (21.0-32.0) mmol/L BUN 7 (7.0-18.0) mg/dL Creatinine 0.9 (0.8-1.3) mg/dL Est Cr Clr Drug Dosing 85.50 mL/min Estimated GFR (MDRD) > 60.0 ml/min Glucose 106 (74-106) mg/dL Hemoglobin A1c (4.5-6.2) % Calcium 9.4 (8.5-10.1) mg/dL Total Bilirubin (0.2-1.0) mg/dL AST (15-37) IU/L ALT (14-63) IU/L Alkaline Phosphatase (46-116) U/L Troponin I (0.000-0.056) ng/mL Total Protein (6.4-8.2) g/dL Albumin (3.4-5.0) g/dL Globulin (2.6-4.0) g/dL Albumin/Globulin Ratio (0.9-1.6) Triglycerides 87 (0-200) mg/dL Cholesterol 183 (50-200) mg/dL LDL Cholesterol, Calc 127 (60-180) mg/dL VLDL Cholesterol 17 (5-55) mg/dL HDL Cholesterol 39 L (40-60) mg/dL Cholesterol/HDL Ratio 4.7 (3.3-6.0) Urine Color Urine Appearance Urine pH (5.0-8.0) Ur Specific [place] (1.001-1.035) Urine Protein (NEGATIVE) mg/dL Urine Glucose (UA) (NEGATIVE) mg/dL Urine Ketones (NEGATIVE) mg/dL Urine Occult Blood (NEGATIVE) Urine Nitrite (NEGATIVE) Urine Bilirubin (NEGATIVE) Urine Urobilinogen (<2.0) EU/dL Ur Leukocyte Esterase (NEGATIVE) 11/07/18 Range/Units 06:00 WBC (4.0-11.0) K/uL RBC (4.50-5.90) M/uL Hgb (13.0-17.0) g/dL Hct (38.0-50.0) % MCV (80.0-98.0) fL MCH (27.0-32.0) pg MCHC (31.0-37.0) g/dL RDW Std Deviation (28.0-62.0) fl RDW Coeff of [place] (11.0-15.0) % Plt Count (150-400) K/uL MPV (7.40-12.00) fL Neut % (Auto) (48.0-80.0) % Lymph % (Auto) (16.0-40.0) % [place] % (Auto) (0.0-15.0) % Eos % (Auto) (0.0-7.0) % Baso % (Auto) (0.0-1.5) % Neut # (Auto) (1.4-5.7) K/uL Lymph # (Auto) (0.6-2.4) K/uL [place] # (Auto) (0.0-0.8) K/uL Eos # (Auto) (0.0-0.7) K/uL Baso # (Auto) (0.0-0.1) K/uL Nucleated RBC % /100WBC Nucleated RBCs # K/uL INR Sodium (136-148) mmol/L Potassium (3.5-5.1) mmol/L Chloride (98-107) mmol/L Carbon Dioxide (21.0-32.0) mmol/L BUN (7.0-18.0) mg/dL Creatinine (0.8-1.3) mg/dL Est Cr Clr Drug Dosing mL/min Estimated GFR (MDRD) ml/min Glucose (74-106) mg/dL Hemoglobin A1c 5.6 (4.5-6.2) % Calcium (8.5-10.1) mg/dL Total Bilirubin (0.2-1.0) mg/dL AST (15-37) IU/L ALT (14-63) IU/L Alkaline Phosphatase (46-116) U/L Troponin I (0.000-0.056) ng/mL Total Protein (6.4-8.2) g/dL Albumin (3.4-5.0) g/dL Globulin (2.6-4.0) g/dL Albumin/Globulin Ratio (0.9-1.6) Triglycerides (0-200) mg/dL Cholesterol (50-200) mg/dL LDL Cholesterol, Calc (60-180) mg/dL VLDL Cholesterol (5-55) mg/dL HDL Cholesterol (40-60) mg/dL Cholesterol/HDL Ratio (3.3-6.0) Urine Color Urine Appearance Urine pH (5.0-8.0) Ur Specific [place] (1.001-1.035) Urine Protein (NEGATIVE) mg/dL Urine Glucose (UA) (NEGATIVE) mg/dL Urine Ketones (NEGATIVE) mg/dL Urine Occult Blood (NEGATIVE) Urine Nitrite (NEGATIVE) Urine Bilirubin (NEGATIVE) Urine Urobilinogen (<2.0) EU/dL Ur Leukocyte Esterase (NEGATIVE) Med Orders - Current: Current Medications Acetaminophen (Tylenol) 650 mg PO Q4H PRN PRN Reason: Pain (Mild 1-3)/fever Diphenhydramine HCl (Benadryl) 25 mg PO Q8H PRN PRN Reason: Itching Docusate Sodium (Colace) 100 mg PO BID PRN PRN Reason: Constipation Fluconazole (Diflucan) 100 mg PO DAILY [facility] Last Admin: 11/07/18 10:00 Dose: 100 mg Heparin Sodium (Porcine) (Heparin Sodium) 5,000 units SUBCUT Q8H [facility] Last Admin: 11/07/18 08:00 Dose: Not Given Hydroxyzine HCl (Atarax) 12.5 mg PO TID PRN PRN Reason: Itching Last Admin: 11/07/18 09:58 Dose: 12.5 mg Oxycodone HCl (Oxycodone) 5 mg PO Q4H PRN PRN Reason: Pain (moderate 4-6) Temazepam (Restoril) 15 mg PO BEDTIME PRN PRN Reason: Sleep Last Admin: 11/06/18 21:32 Dose: 15 mg Discontinued Medications Aspirin (Aspirin) 324 mg PO ONETIME ONE Stop: 11/06/18 12:49 Last Admin: 11/06/18 13:05 Dose: 324 mg Hydroxyzine HCl (Atarax) 10 mg PO TID PRN PRN Reason: Itching Sodium Chloride (Normal Saline) 1,000 mls @ 999 mls/hr IV BOLUS ONE Stop: 11/06/18 13:48 Last Admin: 11/06/18 13:05 Dose: 999 mls/hr Sodium Chloride (Normal Saline) 1,000 mls @ 75 mls/hr IV ASDIRECTED [facility] Stop: 11/07/18 04:19 Last Admin: 11/06/18 16:08 Dose: 75 mls/hr - Exam General: Alert, Oriented, Cooperative, No Acute Distress Neck: Supple Lungs: Clear to Auscultation, Normal Respiratory Effort Cardiovascular: Regular Rate, Regular Rhythm GI/Abdominal Exam: Normal Bowel Sounds, Soft, Non-Tender Back Exam: Normal Inspection, Full Range of Motion Extremities: Normal Inspection, Normal Range of Motion, Non-Tender, No Pedal Edema Wound/Incisions: Healing Well Neurological: Normal Gait, Normal Speech, Strength Equal Bilateral, Cranial Nerves Intact Psy/Mental Status: Alert, Normal Affect, Normal Mood - Problem List & Annotations (1) Dizziness SNOMED Code(s): 409713300, 660970897 Code(s): R42 - DIZZINESS AND GIDDINESS Status: Acute Priority: High Current Visit: Yes (2) Tinea corporis SNOMED Code(s): 73334963 Code(s): B35.4 - TINEA CORPORIS Status: Acute Current Visit: Yes (3) Coronary artery disease SNOMED Code(s): 02316698 Code(s): I25.10 - ATHSCL HEART DISEASE OF [place] CORONARY ARTERY W/O ANG PCTRS Status: Chronic Priority: High Current Visit: Yes Qualifiers: Coronary Disease-Associated Artery/Lesion type: [place] artery [place] vs. transplanted heart: [place] heart Associated angina: without angina Qualified Code(s): I25.10 - Atherosclerotic heart disease of [place] coronary artery without angina pectoris (4) History of coronary artery stent placement SNOMED Code(s): 208757270, 383309471 Code(s): Z95.5 - PRESENCE OF CORONARY ANGIOPLASTY IMPLANT AND GRAFT Status : Chronic Priority: High Current Visit: Yes - Problem List Review Problem List Initiated/Reviewed/Updated: Yes - My Orders Last 24 Hours: My Active Orders 11/07/18 08:27 Orthostatic Vital Signs [RC] ASDIRECTED 11/07/18 08:28 Consult to Physical Therapy [PT Evaluation and Treatment] [CONS] Routine 11/07/18 10:19 Ang Head w Cont [MR] Routine Ang Neck w Cont [MR] Routine Brain w wo Cont [MR] Routine 11/07/18 11:01 KIMBERLY PREP [MYC] Routine 11/07/18 11:03 May Shower [RC] DAILY 11/07/18 11:15 Betamethasone/Clotrimazole [Lotrisone] 1 gm TOP BID - Plan Plan:: This 58 year old male admitted initially with chest pain, dizziness and skin rash 1. Chest pain: No longer having chest pain. Trend troponins are negative. Telemetry stable no events. Will need stress test as outpatient due to history of [place] with PCI. 2. Dizziness: Biggest concern for patient. PT consult for vestibular assessment , did not feel this was BPPV related. Will order MRI/MRA head and neck for today. head CT on admission negative. 3. Tinea: Noted in groin, abdomen and back. Reports it is very itchy. Continue Diflucan daily. Start Clotrimazole BID. KIMBERLY scraping pending. He reports he lives in his motor home currently. States he is able to shower daily. VTE prophylaxis: Lovenox. Dispo: 1-2 days pending improvement and MRI.
[2018-11-07] MEDS ORDERED: Gadobenate Dimeglumine 529 MG/ML 20 ML SDV IVPUSH STA (13:45)
--- NOTE | 2018-11-07 14:55 | MR ---
INDICATION: Dizziness. TECHNIQUE: Magnetic Resonance Angiography of the head without contrast. 3D Time of Flight Sequence of the intracranial circulation. Maximum Intensity Reconstructions are provided. COMPARISON: None. FINDINGS: The anterior and middle cerebral arteries are widely patent. The posterior cerebral arteries are widely patent. The intradural vertebral arteries and basilar artery are widely patent.The intracranial internal carotid arteries are widely patent. No aneurysm or vascular malformation. IMPRESSION : 1. Normal appearance of the intracranial arterial circulation, with no stenosis, occlusion or other vascular abnormality. Dictated by Robert Hardin MD @ Nov 07 2018 2:49PM Signed by Dr. Robert Hardin @ Nov 07 2018 2:54PM
[2018-11-07] MEDS: Betamethasone Dipropionate/Clotrimazole 0.05-1% Crm 15 GM Tube TOP SCH ×2 (15:00→21:51)
--- NOTE | 2018-11-07 15:26 | MR ---
INDICATION: Dizziness. TECHNIQUE: 3D TOF and gadolinium bolus MRA of the neck with 3D MIP reconstructions provided. All measurements are based on NASCET criteria. COMPARISON : None. FINDINGS: There is a normal 3 vessel configuration of the aortic arch, with no substantial narrowing of the great vessel origins. The proximal subclavian arteries are normal in course and caliber. The cervical carotid arteries are normal in course and caliber. Pulsation/motion artifact obscures the vertebral artery origins. The cervical vertebral arteries distal to the origins are normal in course and caliber. IMPRESSION: 1. No significant stenosis of the cervical arterial circulation. Dictated by Robert Hardin MD @ Nov 07 2018 3:12PM Signed by Dr. Robert Hardin @ Nov 07 2018 3:23PM
--- NOTE | 2018-11-07 15:45 | MR ---
INDICATION: Dizziness. TECHNIQUE: Brain MRI with contrast. The following sequences were obtained: Sagittal T1 weighted sequence. DWI and ADC mapping sequences. Axial FLAIR and PIERO T2 weighted sequences. SWI sequence. 3D T1 weighted post-contrast sequences. 18 cc MultiHance gadolinium based contrast agent was used. COMPARISON: CT head from 11/06/2018. FINDINGS: No acute infarct or hemorrhage. No pathologic intracranial enhancement or signal abnormality. No mass effect or herniation. No hydrocephalus or extra-axial collections. The pituitary gland, parasellar structures and optic chiasm are normal. Posterior fossa is normal. All the major intracranial vascular structures demonstrate normal flow-related signal. The orbital contents are normal. No calvarial or skull base marrow signal abnormality. No obstructive sinus disease. No extracranial soft tissue findings. IMPRESSION: 1. No evidence of acute infarct or other acute intracranial pathology. Normal contrast-enhanced brain MRI. Dictated by Robert Hardin MD @ Nov 07 2018 3:39PM Signed by Dr. Robert Hardin @ Nov 07 2018 3:42PM
[2018-11-07] MEDS ORDERED: methylPREDNISolone Sodium Succinate 125 MG/2 ML SDV IVPUSH ONE (16:24)
[2018-11-08] MEDS: Heparin Sodium 5,000 Units/ML Vial SUBCUT SCH (06:46)
[2018-11-08] MEDS ORDERED: Ondansetron 4 MG/2 ML SDV IVPUSH PRN (07:44)
[2018-11-08] MEDS: Fluconazole 100 MG Tab PO SCH (08:19)
[2018-11-08] MEDS: Betamethasone Dipropionate/Clotrimazole 0.05-1% Crm 15 GM Tube TOP SCH (08:19)
[2018-11-08] MEDS ORDERED: Meclizine 25 MG Tab PO ONE (10:47)
--- NOTE | 2018-11-08 11:31 | PCM.DCSUM1 ---
Discharge Summary - Hospital Course Brief History: The patient is a 58-year-old gentleman who had presented to the emergency department out of concern with acute onset dizziness. The patient had described it as room spinning. He also had been complaining of chest discomfort but not described as pain. Interestingly, the patient was evaluated in the emergency department yesterday secondary to a generalized body rash and had been given steroids. The patient says that the dizziness started this morning. He has denied any fever or chills. No pain now. The patient has described the rash as itchy located in his thighs, back, arms and torso. The patient said that the rash had improved with the use of Medrol Dosepak given yesterday. No other complaints at the present time - Discharge Data Discharge Date: 11/08/18 Discharge Disposition: Home, Self-Care 01 Condition: Good - Discharge Diagnosis/Problem(s) (1) Dizziness SNOMED Code(s): 286166398, 391092446 ICD Code: R42 - DIZZINESS AND GIDDINESS Status: Acute Priority: High Current Visit: Yes (2) Tinea corporis SNOMED Code(s): 68289481 ICD Code: B35.4 - TINEA CORPORIS Status: Acute Current Visit: Yes (3) Coronary artery disease SNOMED Code(s): 79650515 ICD Code: I25.10 - ATHSCL HEART DISEASE OF [place] CORONARY ARTERY W/O ANG PCTRS Status: Chronic Priority: High Current Visit: Yes Qualifiers: Coronary Disease-Associated Artery/Lesion type: [place] artery [place] vs. transplanted heart: [place] heart Associated angina: without angina Qualified Code(s): I25.10 - Atherosclerotic heart disease of [place] coronary artery without angina pectoris (4) History of coronary artery stent placement SNOMED Code(s): 938703017, 769973960 ICD Code: Z95.5 - PRESENCE OF CORONARY ANGIOPLASTY IMPLANT AND GRAFT Status : Chronic Priority: High Current Visit: Yes - Patient Summary/Data Consults: Consultations 11/07/18 08:28 Consult to Physical Therapy [PT Evaluation and Treatment] [CONS] Routine - Discharge Plan *PRESCRIPTION DRUG MONITORING PROGRAM REVIEWED*: Not Applicable *COPY OF PRESCRIPTION DRUG MONITORING REPORT IN PATIENT DENI: Not Applicable Prescriptions/Med Rec: Betamethasone/Clotrimazole [Lotrisone] 1 applic TOP BID #30 gm Meclizine [Antivert] 25 mg PO TID PRN #20 tab PRN Reason: Dizziness Home Medications: Home Meds Aspirin [Adult Low Dose Aspirin EC] 81 mg PO DAILY 11/06/18 [History] Fish Oil/DHA/EPA [Fish Oil 1,200 MG] 1 each PO BID 11/06/18 [History] Betamethasone/Clotrimazole [Lotrisone] 1 applic TOP BID #30 gm 11/08/18 [Rx] Meclizine [Antivert] 25 mg PO TID PRN #20 tab 11/08/18 [Rx] Oxygen Therapy Mode: Room Air Patient Handouts: Meclizine tablets or capsules, Atopic Dermatitis, Betamethasone; Clotrimazole skin cream, Nonspecific Chest Pain, [id number], Dizziness, [id number] Referrals: [facility] [Ordering Only Provider] - Luana Coppola PA [Physician Shower Screen Installer] - 11/10/18 1:30 pm - Discharge Summary/Plan Comment DC Time >30 min.: No Discharge Summary/Plan Comment: Admitting Diagnoses: Dizziness Atypical chest pain Rash Discharge Diagnoses: Vertigo Atypical chest pain Rash Other PMH: HTN CAD Ashu was admitted out of concern for dizziness, he reported he felt dizzy with movement and thought his rash was causing this. He had been recently placed on Medrol dose pack for this rash with mild improvement, but reports it is very itchy. He reports this rash has been intermittently waxing and waning. He reports seeing an heating repair technician a few years ago with no help and has never seen a air sealing technician. He continues to denies any allergies or exposure to chemicals, lotions or detergents when he gets the rash. A1c WNL. He was encouraged to monitor his reaction and what foods or chemical he uses around this time to help pin point what may be occuring. It may be allergic. KIMBERLY skin scraping returned negative. He was treated prior with 3 days Diflucan. He is to completed medrol dose pack. Continue clotrimazole cream to rash. He has close follow up as outpatient. We will set him up in [place] with heating repair technician and Data Analysis Assistant. Discussed proper daily hygiene and keeping rash areas dry and to avoid long exposure to moisture. Dizziness was worked up extensively. CT of head negative, MRI/MRA head and neck were completely negative, no concerns with arterial circulation. He was also evaluated by PT for BPPV, which they felt was unlikely. Monitored on telemetry, no arrhythmias noted. He was treated with Meclizine. He is to monitor and treat with Meclinzine PRN. He is to return to ED or clinic if concerns should arise. He reports he is living in his camper currently here working, they are heading to [place] in a few days. Home is [facility], PCP is Dr Washington. - General Info Date of Service: 11/08/18 Admission Dx/Problem (Free Text: Admission Diagnosis/Problem Admission Diagnosis/Problem Dizziness, rash Subjective Update: Reports feeling better today, rash has improved with clotrimazole and steroid IV. Itching better. No chest pain. No SOB. Mild dizziness with nausea. Functional Status: Reports: Pain Controlled, Tolerating Diet, Ambulating (up independently in room), Urinating - Review of Systems General: Reports: No Symptoms HEENT: Reports: No Symptoms. Denies: Headaches, Sore Throat, Visual Changes Pulmonary: Reports: No Symptoms. Denies: Shortness of Breath, Pleuritic Chest Pain, Wheezing Cardiovascular: Reports: No Symptoms. Denies: Chest Pain, Palpitations, Orthopnea Gastrointestinal: Reports: No Symptoms. Denies: Abdominal Pain, Nausea, Vomiting Genitourinary: Reports: No Symptoms. Denies: Dysuria, Frequency, Burning Musculoskeletal: Reports: No Symptoms Skin: Reports: Rash (improved to groin, thighs and back) Neurological: Reports: Dizziness (intermittently) Psychiatric: Reports: No Symptoms - Patient Data Vitals - Most Recent: Last Vital Signs Temp 97.7 F 11/08/18 07:46 Pulse 82 11/08/18 07:46 Resp 16 11/08/18 07:46 BP 122/72 11/08/18 07:46 Pulse Ox 95 11/08/18 07:46 Orthostatic Blood Pressure [ 125/67 Standing] Orthostatic Blood Pressure [ 114/81 Sitting] Orthostatic Blood Pressure [ 114/76 Supine] Weight - Most Recent: 94.846 kg I&O - Last 24 hours: Intake & Output 11/07/18 11/08/18 11/08/18 22:59 06:59 14:59 Intake Total 1080 500 Output Total 620 800 Balance 460 -300 ROBBIE Results - Last 24 hrs: Microbiology 11/07/18 11:00 KIMBERLY Preparation - Final Skin / Skin Scrapings - Thigh, Left Med Orders - Current: Current Medications Acetaminophen (Tylenol) 650 mg PO Q4H PRN PRN Reason: Pain (Mild 1-3)/fever Betamethasone/Clotrimazole (Lotrisone) 1 gm TOP BID [facility] Last Admin: 11/08/18 08:19 Dose: 1 gm Diphenhydramine HCl (Benadryl) 25 mg PO Q8H PRN PRN Reason: Itching Last Admin: 11/07/18 16:20 Dose: 25 mg Docusate Sodium (Colace) 100 mg PO BID PRN PRN Reason: Constipation Fluconazole (Diflucan) 100 mg PO DAILY [facility] Last Admin: 11/08/18 08:19 Dose: 100 mg Heparin Sodium (Porcine) (Heparin Sodium) 5,000 units SUBCUT Q8H [facility] Last Admin: 11/08/18 06:46 Dose: Not Given Hydroxyzine HCl (Atarax) 12.5 mg PO TID PRN PRN Reason: Itching Last Admin: 11/07/18 09:58 Dose: 12.5 mg Ondansetron HCl (Zofran) 4 mg IVPUSH Q4H PRN PRN Reason: Nausea/Vomiting Last Admin: 11/08/18 08:16 Dose: 4 mg Oxycodone HCl (Oxycodone) 5 mg PO Q4H PRN PRN Reason: Pain (moderate 4-6) Temazepam (Restoril) 15 mg PO BEDTIME PRN PRN Reason: Sleep Last Admin: 11/06/18 21:32 Dose: 15 mg Discontinued Medications Aspirin (Aspirin) 324 mg PO ONETIME ONE Stop: 11/06/18 12:49 Last Admin: 11/06/18 13:05 Dose: 324 mg Gadobenate Dimeglumine (Multihance) 18 ml IVPUSH ONETIME STA Stop: 11/07/18 13:46 Last Admin: 11/07/18 13:46 Dose: 18 ml Hydroxyzine HCl (Atarax) 10 mg PO TID PRN PRN Reason: Itching Sodium Chloride (Normal Saline) 1,000 mls @ 999 mls/hr IV BOLUS ONE Stop: 11/06/18 13:48 Last Admin: 11/06/18 13:05 Dose: 999 mls/hr Sodium Chloride (Normal Saline) 1,000 mls @ 75 mls/hr IV ASDIRECTED JUAN CARLOS Stop: 11/07/18 04:19 Last Admin: 11/06/18 16:08 Dose: 75 mls/hr Meclizine HCl (Antivert) 25 mg PO ONETIME ONE Stop: 11/08/18 10:48 Last Admin: 11/08/18 11:20 Dose: 25 mg Methylprednisolone Sodium Succinate (Solu-Medrol) 125 mg IVPUSH ONETIME ONE Stop: 11/07/18 16:25 Last Admin: 11/07/18 17:22 Dose: 125 mg - Exam General: Reports: Alert, Oriented, Cooperative, No Acute Distress Neck: Reports: Supple Lungs: Reports: Clear to Auscultation, Normal Respiratory Effort Cardiovascular: Reports: Regular Rate, Regular Rhythm GI/Abdominal Exam: Normal Bowel Sounds, Soft Back Exam: Reports: Normal Inspection, Full Range of Motion Skin: Reports: Rash (improved, less red in appearance. reports itching improved. Tinea like in appearance)
== END 2018-11-08 14:00 | disposition home or self-care (01) ==
LOC: MW.ED 12:43 → MW.MS 14:30
PROVIDERS: ADMIT Internal Medicine; ATTEND Internal Medicine
DX: R42 Dizziness and giddiness (principal); I25.10 Atherosclerotic heart disease of native coronary artery without angina pectoris; B35.4 Tinea corporis; I25.2 Old myocardial infarction; R07.89 Other chest pain; L21.9 Seborrheic dermatitis, unspecified; Z95.5 Presence of coronary angioplasty implant and graft; Z87.891 Personal history of nicotine dependence; Z91.030 Bee allergy status; Z79.82 Long term (current) use of aspirin; Z79.899 Other long term (current) drug therapy
CPT/HCPCS: 36415; 70450; 70544; 70549; 70553; 71045; 80048; 80053; 80061; 81003; 83036; 84484; 85025; 85610; 87220; 93005; 96360; 97161; 97530; 99285; A9270; A9577; J1644; J2405; J2930; J7040; 96361; 96372; 96374; 96375; G0378